=== PATIENT | female | born 1995 | race Two or more races ===

== ENCOUNTER 2020-11-29 22:25 | Emergency (ER) | payer OTHER ==
[~2020-11-29] VITALS: Ht 154.9 cm; Wt 54.9 kg
[2020-11-30] MEDS ORDERED: CEPHALEXIN500 M1 PO (01:54)
[2020-11-30] MEDS ORDERED: ZOFRAN4 MG PO ×2 (01:55→01:56)
== END 2020-11-30 02:36 | disposition home or self-care (01) ==
LOC: ER 22:25
DX: O21.8 Other vomiting complicating pregnancy (principal); Z34.01 Encounter for supervision of normal first pregnancy, first trimester

== ENCOUNTER 2020-12-15 18:16 | Emergency (ER) | payer OTHER ==
[~2020-12-15] VITALS: Ht 154.9 cm; Wt 54.0 kg
[~2020-12-15 18:16] MED LIST: CEPHALEXIN500 M1 PO; ZOFRAN4 MG PO
== END 2020-12-16 00:36 | disposition home or self-care (01) ==
LOC: ER 18:16
DX: O21.8 Other vomiting complicating pregnancy (principal); Z3A.10 10 weeks gestation of pregnancy

== ENCOUNTER 2021-02-10 14:36 | Emergency (ER) | payer OTHER ==
[~2021-02-10] VITALS: Ht 154.9 cm; Wt 55.3 kg
[2021-02-10] MEDS ORDERED: FOLIC ACID20 MG (14:45)
== END 2021-02-10 21:48 | disposition home or self-care (01) ==
LOC: ER 14:36
DX: O26.892 Other specified pregnancy related conditions, second trimester (principal); R10.2 Pelvic and perineal pain; Z34.02 Encounter for supervision of normal first pregnancy, second trimester

== ENCOUNTER → 2021-03-30 | Outpatient (CLI) | payer OTHER ==
[~2021-03-30] MED LIST changes: +FOLIC ACID20 MG; +OSEL75CA PO; +PRENA1 TRUE CO1 EACH
== END | disposition home or self-care (01) ==
LOC: PRENATAL 10:00
PROVIDERS: ATTEND Obstetrics & Gynecology Maternal & Fetal Medicine
DX: O35.0XX1 Maternal care for (suspected) central nervous system malformation in fetus, fetus 1 (principal); O35.3XX1 Maternal care for (suspected) damage to fetus from viral disease in mother, fetus 1; O98.512 Other viral diseases complicating pregnancy, second trimester; Z36.89 Encounter for other specified antenatal screening; Z3A.27 27 weeks gestation of pregnancy

== ENCOUNTER 2021-04-19 21:26 | Emergency (ER) | payer OTHER ==
[~2021-04-19] VITALS: Ht 154.9 cm; Wt 60.3 kg
[~2021-04-19 21:26] MED LIST changes: -OSEL75CA PO; -PRENA1 TRUE CO1 EACH
[2021-04-19] MEDS ORDERED: PRENA1 TRUE CO1 EACH (21:47)
[2021-04-20] MEDS ORDERED: OSEL75CA PO (06:49)
== END 2021-04-20 07:18 ==
LOC: ER 21:26
DX: U07.1 COVID-19 (principal); J10.1 Influenza due to other identified influenza virus with other respiratory manifestations

== ENCOUNTER 2021-05-11 12:43 | Outpatient (CLI) | payer OTHER ==
[~2021-05-11 12:43] MED LIST changes: +OSEL75CA PO; +PRENA1 TRUE CO1 EACH
== END 2021-05-11 13:29 | disposition home or self-care (01) ==
LOC: PRENATAL 12:43
PROVIDERS: ATTEND Obstetrics & Gynecology Maternal & Fetal Medicine
DX: O26.843 Uterine size-date discrepancy, third trimester (principal); O35.0XX1 Maternal care for (suspected) central nervous system malformation in fetus, fetus 1; O36.8131 Decreased fetal movements, third trimester, fetus 1; Z36.89 Encounter for other specified antenatal screening; Z3A.32 32 weeks gestation of pregnancy

== ENCOUNTER 2021-05-15 15:47 | Outpatient (CLI) | payer OTHER | END 2021-05-15 16:30 | disposition home or self-care (01) | LOC: NST 15:47 | PROVIDERS: ATTEND Obstetrics & Gynecology | DX: Z34.83 Encounter for supervision of other normal pregnancy, third trimester (principal) ==

== ENCOUNTER 2021-06-28 15:15 | Inpatient (IN) | payer OTHER ==
[~2021-06-28] VITALS: Ht 154.9 cm; Wt 3.6 kg
== END 2021-07-08 16:49 | disposition home or self-care (01) | DRG 788 ==
LOC: LDR 07-05 01:07 → OB/GYN 07-05 01:07 → O/R 07-06 00:15 → OB/GYN 07-06 02:25 → SURH 07-08 15:15 → OB/GYN 07-08 16:49
PROVIDERS: ADMIT Student in an Organized Health Care Education/Training Program; ATTEND Student in an Organized Health Care Education/Training Program
PROC: 10907ZC Drainage of Amniotic Fluid, Therapeutic from Products of Conception, Via Natural or Artificial Opening (ICD-10-PCS; 2021-07-05)
PROC: 3E033VJ Introduction of Other Hormone into Peripheral Vein, Percutaneous Approach (ICD-10-PCS; 2021-07-05)
PROC: 4A1HXFZ Monitoring of Products of Conception, Cardiac Rhythm, External Approach (ICD-10-PCS; 2021-07-05)
PROC: 10D00Z2 Extraction of Products of Conception, Extraperitoneal, Open Approach (ICD-10-PCS; principal; 2021-07-05 21:00)
DX: O62.1 Secondary uterine inertia (principal); Z37.0 Single live birth; Z3A.39 39 weeks gestation of pregnancy